=== PATIENT | male | born 1930 | race Caucasian/White ===

== ENCOUNTER → 2016-12-30 | Outpatient (CLI) | payer MEDICARE, BC ==
--- NOTE | 2016-12-30 10:04 | XR ---
EXAMINATION TYPE: XR KUB DATE OF EXAM: 12/30/2016 9:59 AM COMPARISON: NONE HISTORY: Bilateral abdominal pain TECHNIQUE: One view abdominal series FINDINGS: The osseous structures are intact. Hypertrophic change of the spine noted. The bowel gas pattern is n onspecific. Calcified granuloma in the left lower lobe. Pleural-based thickening or tiny effusion on the right. Right kidney: There are 3 calcifications ranging in size from 3 mm to 7.4 mm. Left kidney: There are 3 calcifications all measuring approximately 4 mm. Pelvis: Arthropathy of the hips seen and vascular calcifications noted. Possible prostate calcificati ons. IMPRESSION: 1. Nonspecific abdomen. 2. Bilateral nephrolithiasis. 3. Tiny right pleural effusion. 4. Left lower lobe granuloma.
== END ==
LOC: RADXRMAIN 09:25
PROVIDERS: ATTEND Physician Assistant
DX: N20.0 Calculus of kidney (principal)
CPT/HCPCS: 74000

== ENCOUNTER → 2017-02-28 | Outpatient (CLI) | payer MEDICARE, BC ==
[2017-02-28 10:39] LABS: EKG EKG PERFORMED
[2017-02-28 11:08] LABS: Aty Lym Flag Slight; CHCM 33.9; HCT 38.7 % (39.0-53.0); HDW 2.64; HGB 12.9 gm/dL (13.0-17.5); MCH 29.7 pg (25.0-35.0); MCHC 33.4 g/dL (31.0-37.0); MCV 88.8 fL (80.0-100.0); Mean Platelet Volume 6.8; RBC 4.36 m/uL (4.30-5.90); WBC 3.4 k/uL (3.8-10.6); WBC (Perox) 3.56
[2017-02-28 11:30] LABS: Blood Urea Nitrogen 22 mg/dL (9-20); Non-African American GFR(MDRD) >60 (>60 ml/min/1.73 sqM)
[2017-02-28 11:46] LABS: Add Differential Manual Differential
[2017-02-28 11:48] LABS: Nucleated Red Blood Cells 0 /100 WBC (0-0); Total Cells Counted 100
[2017-02-28 11:49] LABS: Manual Review Performed; RBC Morphology Normal
== END | disposition home or self-care (01) ==
LOC: LABPAT 10:31
PROVIDERS: ATTEND Urology
DX: N20.0 Calculus of kidney (principal)
CPT/HCPCS: 82565; 84520; 85025; 93005

== ENCOUNTER 2017-03-07 06:55 | Day surgery (SDC) | payer MEDICARE, BC ==
[2017-03-01 18:53] VITALS: BMI 28.1
[~2017-03-07 06:55] MED LIST: LACTATED RINGERS 1,000 ML IV SCH; Pre Op ABX Message 1 EACH MISC MISCELLANE ONE
[2017-03-07 07:21] VITALS: RESP 16; TEMP 97.6
[2017-03-07] MEDS ORDERED: LIDOCAINE 1% 20 ML VIAL (10MG/ML) FOR IV START INTRADERMA ONE (07:29)
[2017-03-07] MEDS ORDERED: PROPOFOL 10 MG/ML 20 ML VIAL IV ONE (07:38)
[2017-03-07] MEDS ORDERED: KETAMINE 10 MG/ML 20 ML VIAL ONE (07:38)
[2017-03-07] MEDS ORDERED: LIDOCAINE 1% INJ 10MG/ML (20 ML MDV) ONE (07:38)
[2017-03-07] MEDS ORDERED: fentaNYL (PF) 50 MCG/ML 2 ML AMP ONE (07:38)
[2017-03-07] MEDS ORDERED: MIDAZOLAM 2 MG/2 ML VIAL ONE (07:38)
--- NOTE | 2017-03-07 07:45 | XR ---
EXAMINATION TYPE: KUB, 2 VIEWS DATE OF EXAM ORDERED: 03/07/2017 HISTORY: RT RENAL STONE, SURGERY. COMPARISON: Previous study dated 12/30/2016. FINDINGS: Multiple calcifications are seen overlying both kidneys. The largest on the right which pr eviously measured 7.64 mm now represent fragments. The stoma on the left is unchanged. The abdominal gas pattern is normal. There are multiple phleboliths within the pelvis IMPRESSION: BILATERAL NEPHROLITHIASIS.
--- NOTE | 2017-03-07 08:10 | P.OP ---
Date of Procedure: 03/07/17 Preoperative Diagnosis: Right renal calculus Postoperative Diagnosis: Right renal calculus Procedure(s) Performed: Extracorporeal shockwave lithotripsy right, 2000 shocks at energy level IV and 5 Implants: Anesthesia: MAC Surgeon: Driss Schulz Pathology: none sent Condition: stable Disposition: PACU Indications for Procedure: The patient is an 86-year-old gentleman with a 6-7 mm collection of stones in the right lower pole calyx who comes for shockwave lithotripsy Operative Findings: Description of Procedure: Patient is brought to the lithotripsy suite and placed on the lithotripsy table in supine position. The patient is given IV sedation. The stone was seen in 2 views of fluoroscopy. A total of 2000 shocks at energy level IV and 5 are administered with good fracturing of the stone. At the procedure the patient's awakened and returned recovery room good condition. He'll follow-up in the office in one week.
[2017-03-07 09:02] VITALS: BP 159/77; PULSE 56
== END 2017-03-07 09:22 | disposition home or self-care (01) ==
LOC: ORWHC2ENDO 06:55
PROVIDERS: ATTEND Urology
DX: N20.0 Calculus of kidney (principal); I10 Essential (primary) hypertension; E78.5 Hyperlipidemia, unspecified; E03.9 Hypothyroidism, unspecified; C95.90 Leukemia, unspecified not having achieved remission; J45.909 Unspecified asthma, uncomplicated; R56.9 Unspecified convulsions; Z79.82 Long term (current) use of aspirin; Z79.899 Other long term (current) drug therapy; Z87.891 Personal history of nicotine dependence; Z84.1 Family history of disorders of kidney and ureter; Z98.52 Vasectomy status; Z90.49 Acquired absence of other specified parts of digestive tract
CPT/HCPCS: 50590; 74000; J2250; J2001; J3010; J2704

== ENCOUNTER → 2017-03-11 | Outpatient (CLI) | payer MEDICARE, BC ==
--- NOTE | 2017-03-11 12:43 | XR ---
EXAMINATION TYPE: XR KUB DATE OF EXAM: 03/11/2017 COMPARISON: 03/07/2017 HISTORY: Post lithotripsy TECHNIQUE: One view abdominal series FINDINGS: The osseous structures are intact. The bowel gas pattern is nonspecific. There are 3 calcifications on the left which are stable in size and position with the largest measuring 5 mm. On the right appears be fragmentation of the 2 calcifications involving the lower pole with numerous tiny 1 mm calcifications. Approximately 9 or 10 are now seen. There are additional punctate calcifica tions involving the mid and upper pole the left kidney measuring less than 5 mm. Calcifications in the pelvis are likely related to prostate calcifications. Degenerative change of the spine and arthropathy of the hips. IMPRESSION: 1. Bilateral renal calculi there is fragmentation of the lower pole right renal calculi. No suspiciou s calculi along the expected course of the right ureter..
== END ==
LOC: RADXRMAIN 12:21
PROVIDERS: ATTEND Urology
DX: N20.0 Calculus of kidney (principal)
CPT/HCPCS: 74000

== ENCOUNTER → 2017-05-12 | Outpatient (CLI) | payer MEDICARE, BC ==
--- NOTE | 2017-05-12 09:46 | XR ---
EXAMINATION TYPE: XR abdomen 1V DATE OF EXAM: 05/12/2017 COMPARISON: NONE HISTORY: TECHNIQUE: One view abdominal series FINDINGS: The osseous structures are intact. Degenerative change of the spine noted. Arthropathy of the hip candie nts. The bowel gas pattern is nonspecific. Calcifications the pelvis. Vascular. Additional pelvic deann cifications likely related to prostate gland. There are 3 calcifications on the left which are stable in size and position with the largest measuri ng 5 mm. On the right appears be 2 calcifications involving the lower pole with numerous tiny 1 mm calcificati ons. Approximately 9 or 10 are now seen. Calcifications in the pelvis are likely related to prostate calcifications. Degenerative change of th e spine and arthropathy of the hips. IMPRESSION: 1. Stable bilateral renal calculi.
== END | disposition home or self-care (01) ==
LOC: RADXRMAIN 09:27
PROVIDERS: ATTEND Urology
DX: N20.0 Calculus of kidney (principal)
CPT/HCPCS: 74000

== ENCOUNTER → 2019-04-10 | Outpatient (CLI) | payer MEDICARE, BC ==
--- NOTE | 2019-04-12 08:25 | MR ---
EXAMINATION TYPE: MR knee RT wo con DATE OF EXAM: 04/10/2019 COMPARISON: None HISTORY: 88-year-old male Right knee pain, rupture of quadriceps TECHNIQUE: Multiplanar, multisequence imaging of the right knee is performed without IV contrast. FINDINGS: ACL, PCL, MCL, and LCL complex appear intact. There is a complex multidirectional tear involving the posterior horn and body medial meniscus. Overa ll preserved articular cartilage volume within the medial compartment. Very mild superficial cartilag e irregularity along the mid weightbearing aspect. There is an oblique tear involving the posterior horn of the lateral meniscus with overall preserved lateral compartment articular cartilage volume. Mild diffuse thinning of patellofemoral compartment articular cartilage volume. Examination confirms rupture of the distal quadriceps tendon. Some wavy torn distal fibers are presen t inserting onto the upper pole of the patella. The retracted stump measures 4.2 cm proximal to the b ase of the patella. Extensive surrounding hemorrhage, edema, and fluid. Moderate knee joint effusion. No sizable Andrews's cyst. Patchy muscular edema within the gastrocnemius and more extensive edema within the visualized distal quadriceps musculature. Normal popliteal artery anatomy. [id number] generalized muscular atrophy. No suspicious bone ma rrow replacement. IMPRESSION: 1. Exam confirms a distal quadriceps tendon rupture. The retracted stump is located 4.2 cm proximal t o the patellar base. Associated hemorrhagic debris and fluid. Strain of the visualized distal kalia ceps musculature. 2. Additional patchy edema within the upper gastrocnemii could be reactive to altered biomechanics or could represent additional muscle strain. 3. Complex, multidirectional tear involving the posterior horn and body of the medial meniscus. 4. Nondisplaced, oblique tear of the posterior horn of the lateral meniscus. 5. Moderate knee joint effusion.
== END | disposition home or self-care (01) ==
LOC: RADMRIMAIN 12:20
PROVIDERS: ATTEND Family Medicine
DX: S76.111A Strain of right quadriceps muscle, fascia and tendon, initial encounter (principal)